=== PATIENT | female | born 1980 | race Caucasian/White ===

== ENCOUNTER → 2021-03-26 14:46 | Outpatient (CLI) | payer OTHER, SELFPAY ==
--- NOTE | ~2021-03-26 | MM_ITS ---
EXAMINATION: MM screening joanie BI w franklin HISTORY: Screening mammogram TECHNIQUE: Craniocaudal and mediolateral oblique 3-D tomosynthesis images were obtained and synthetic 2-D images were generated. Bilateral rotated lateral cc views. CAD analysis was submitted and interp reted. COMPARISON: No prior mammogram is available for comparison at this institution. BREAST PARENCHYMAL COMPOSITION: The breasts are heterogeneously dense, which may obscure small masses . FINDINGS: There is no evidence of suspicious mass, calcification, or architectural distortion to sugg est malignancy in either breast. There has been no suspicious interval change. IMPRESSION: 1. No mammographic evidence of malignancy. 2. Recommend routine screening mammography in one year. BI-RADS Category 1: Negative Reviewed, dictated and finalized at location A.
== END ==
PROVIDERS: PCP Nurse Practitioner Family; Visit Provider Obstetrics & Gynecology
DX: Z12.31 Encounter for screening mammogram for malignant neoplasm of breast (principal)
CPT/HCPCS: 77063; 77067

== ENCOUNTER 2023-06-08 13:23 | Emergency (ER) | payer BC, SELFPAY ==
--- NOTE | ~2023-06-08 | XR_ITS ---
EXAMINATION: XR chest 2V DATE: 06/08/2023 14:12 INDICATION: Midsternal chest pain TECHNIQUE: PA and lateral views of the chest are obtained. COMPARISON: 08/08/2018 FINDINGS: The lungs are free of acute opacities. No pleural effusion or pneumothorax. The cardiomedia stinal silhouette is normal. There is mild thoracic spondylosis. IMPRESSION: 1. No acute cardiopulmonary abnormality. Reviewed, dictated and finalized at location F. ROENTEROLOGY TECHNICIAN
--- NOTE | 2023-06-08 13:24 | ECG_ITS ---
Measurements Intervals [place] Rate: 88 P: 74 IA: 130 QRS: 39 QRSD: 89 T: 48 QT: 353 QTc: 427 Interpretive Statements SINUS RHYTHM INCOMPLETE RIGHT BUNDLE BRANCH BLOCK BORDERLINE ECG NO PREVIOUS ECG AVAILABLE FOR COMPARISON Electronically Signed On 06-09-2023 8:41:59 ENGINEERING PROGRAM ANALYST by Alexandre Sanchez D.O.
[2023-06-08 13:37] VITALS: BP 132/87; PULSE 83; RESP 17; TEMP 36.4; O2SAT 100
[2023-06-08 13:49] LABS: Basophils Absolute Auto 0.1 K/mm3 (0.0-0.1); Basophils Percent Auto 0.6 % (0.2-1.2); Eosinophils Percent Auto 0.5 % (0-4.4); Hematocrit 37.3 % (37.0-47.0); Hemoglobin 12.6 g/dL (12.0-15.0); Immature Granulocyte Absolute 0.03 K/mm3 (0.00-0.031); Immature Granulocyte Percent A 0.3 % (0-0.5); Lymphocytes Absolute Auto 1.01 K/mm3 (0.9-3.2); Lymphocytes Percent Auto 11.4 % (18.3-44.2); Mean Corpuscular HGB Conc 33.8 g/dl (32-36); Mean Corpuscular Hemoglobin 30.4 pg (26-34); Mean Corpuscular Volume 89.9 fl (80-100); Mean Platelet Volume 9.7 fl (7.4-10.4); Monocytes Absolute Auto 0.7 K/mm3 (0.1-0.6); Monocytes Percent Auto 8.4 % (2.6-8.5); Neutrophils Percent Auto 78.8 % (45.5-73.1); Platelet Count Result 239 k/mm3 (150-375); Red Blood Count 4.15 M/mm3 (4.2-5.4); Red Cell Distribution Width 11.9 % (11.5-14.5); White Blood Count 8.9 K/mm3 (4.5-10.0)
[2023-06-08 14:00] LABS: Alanine Aminotransferase 13 U/L (6-35); Albumin Level 4.4 g/dL (3.5-5.1); Alkaline Phosphatase 77 U/L (38-126); Anion Gap 9 mmol/L (8-16); Aspartate Amino Transferase 22 U/L (14-36); Bilirubin,Total 0.8 mg/dL (0.2-1.3); Blood Urea Nitrogen 11 mg/dL (7-17); Calcium 9.5 mg/dL (8.4-10.2); Carbon Dioxide 27 mmol/L (22-30); Chloride 101 mmol/L (98-107); Estimated CRCL calculation 116 ml/min; Estimated Glomerular Filt Rate > 60; Glucose 103 mg/dL (65-110); Lipase 111 U/L (23-300); Potassium 4.1 mmol/L (3.4-5.0); Sodium 137 mmol/L (137-145)
[2023-06-08 14:01] LABS: INR 1.1; Prothrombin Time 14.6 Seconds (11.1-14.7)
[2023-06-08 14:02] LABS: Partial Thromboplastin Time 34.5 SECONDS (22.3-36.8)
[2023-06-08 14:10] LABS: Troponin I < 0.012 ng/mL (0.000-0.034)
[2023-06-08 14:15] VITALS: BP 121/71; PULSE 77; RESP 14; O2SAT 100
--- NOTE | 2023-06-08 14:38 | ED.CHESTPAIN ---
HPI - Chest Pain General Chief Complaint: Chest Pain Stated Complaint: chest tightness Time Seen by Provider: 06/08/23 14:08 History of Present Illness HPI narrative: 43-year-old female presented to the Emergency department for evaluation of epigastric pain. Patient states symptoms started on Tuesday. Patient had been started on doxycycline for a suspected sinus infection on Tuesday. patient reports that the chest pain and epigastric pain has been worsening with eating is associated with increased belching. Patient has no cardiac history Related Data Home Medications Medication Instructions Recorded Confirmed multivitamin (Daily Multi-Vitamin 1 tablet PO DAILY 08/09/19 10/05/22 tablet) escitalopram oxalate 10 mg tablet 10 mg PO DAILY 10/05/22 10/05/22 hydroxyzine HCl 25 mg tablet 25 mg PO BID PRN Nausea And 10/05/22 10/05/22 Vomiting doxycycline hyclate 100 mg capsule mg 06/08/23 06/08/23 Allergies Allergy/AdvReac Type Severity Reaction Status Date / Time Penicillins Allergy Unknown Unknown Verified 06/08/23 13:39 amoxicillin [From Augmentin] Allergy Swelling Verified 06/08/23 13:39 clavulanic acid Allergy Swelling Verified 06/08/23 13:39 [From Augmentin] AMOXICILLIN TRIHYDRATE Allergy Unknown Unknown Uncoded 10/05/22 09:20 POTASSIUM CLAVULANATE Allergy Unknown Unknown Uncoded 10/05/22 09:20 Review of Systems Review of Systems: All systems reviewed & are unremarkable except as noted in HPI and below PMFSH Past Medical History Medical History (Updated 06/09/23 @ 00:00 by Background Daemon) Migraines Vaginal delivery x2 Family History Family History Grandparent Hypertension, Onset Age: 65 Family history of malignant neoplasm of male breast, Onset Age: 52 Family history of coronary artery disease, Onset Age: 50 Mother Hypertension Father Hypertension Social History Social History Smoking status: Never smoker Second hand tobacco smoke exposure: No Alcohol intake: current Substance use: never Substance use type: does not use Lack of Transportation: No Lack of Food: Never True Current Housing: I Have Housing Concerned About Future Housing: No Difficulty Paying Gas/Electric Bills: No Difficulty Paying for Meds: No Currently Unemployed: No Education: Associate Degree Difficulty w/ Childcare or Family Care: No Exam Narrative: APPEARANCE: Well appearing, no pain, no distress, well-nourished. HEAD: normocephalic, atraumatic. EYES: PERRLA/EOMI, conjunctivae clear. NOSE: Normal no drainage EARS:TMS clear with good light reflex. THROAT: Pharynx clear, no exudate. NECK: Supple. No adenopathy, no masses. RESPIRATORY: Airway patent, respirations nonlabored. Clear to auscultation bilaterally, no rales, rhonchi, wheezing. CARDIOVASCULAR: Regular rate and rhythm without murmurs rubs or gallops. ABDOMINAL: epigastric and sternal tenderness to palpation MUSCULOSKELETAL: Moves all extremities. Strength/ROM intact, No edema, No calf tenderness. NEURO: Alert. Cranial nerves II through XII intact. Good gait. Good coordination SKIN: Warm, dry. Normal Color Course Course Emergency Course: 43-year-old female presents emerged department for evaluation epigastric pain. Suspect esophagitis/ gastritis secondary to the doxycycline. Patient's initial EKG was negative. Patient is afebrile with no leukocytosis. Patient's CMP has no significant abnormalities, patient's initial troponin was negative. Patient's lipase was negative. Chest x-ray showed no acute cardiopulmonary abnormality. Patient is being treated with Protonix and with a GI cocktail. Patient family updated on plan of the workup and symptom control. patient does feel improved with GI cocktail. Patient had negative serial troponins. patient and family were updated of the results
[2023-06-08] MEDS: PANTOPRAZOLE SODIUM IV 40 MG VIAL IV PUSH (14:56)
[2023-06-08] MEDS: BELLADONNA ALK/PHENOB ELIX 10 ML, MAG HYDROX/ALUMINUM HYD/SIMETH 30 ML, LIDOCAINE HCL 2... PO (14:56)
[2023-06-08 15:51] VITALS: BP 112/69; PULSE 71; RESP 16; O2SAT 100
[2023-06-08 15:53] VITALS: BP 103/84; PULSE 73; RESP 15; O2SAT 100
[2023-06-08 15:54] VITALS: BP 94/78; PULSE 68; RESP 16; O2SAT 100
[2023-06-08 17:29] LABS: Troponin I < 0.012 ng/mL (0.000-0.034)
[2023-06-08 17:47] VITALS: BP 123/68; PULSE 82; RESP 20; O2SAT 100
== END 2023-06-08 17:56 | disposition home or self-care (01) ==
PROVIDERS: Emergency Medicine; Emergency Provider Emergency Medicine; PCP Nurse Practitioner Family
DX: R10.13 Epigastric pain (principal); I45.10 Unspecified right bundle-branch block
CPT/HCPCS: 36415; 71046; 80053; 83690; 84484; 85025; 85610; 85730; 93005; 96374; 99284; A9270; C9113

== ENCOUNTER 2024-02-24 12:14 | Outpatient (CLI) | payer BC, SELFPAY ==
--- NOTE | ~2024-02-24 | MM_ITS ---
EXAMINATION: MM screening joanie BI w franklin HISTORY: Screening TECHNIQUE: Craniocaudal and mediolateral oblique 3-D tomosynthesis images were obtained and synthetic 2-D images were generated. CAD analysis was submitted and interpreted. COMPARISON: 03/26/2021 BREAST PARENCHYMAL COMPOSITION: Dense: The breasts are heterogeneously dense, which may obscure small masses FINDINGS: There is no evidence of suspicious mass, calcification, or architectural distortion to sugg est malignancy in either breast. There has been no suspicious interval change. IMPRESSION: 1. No mammographic evidence of malignancy. 2. Recommend routine screening mammography in one year. BI-RADS Category 1: Negative Reviewed, dictated and finalized at location B.
== END 2024-02-24 12:15 ==
LOC: MICIMG 12:15
PROVIDERS: PCP Nurse Practitioner Family; Visit Provider Obstetrics & Gynecology
DX: Z12.31 Encounter for screening mammogram for malignant neoplasm of breast (principal)
CPT/HCPCS: 77063; 77067

== ENCOUNTER 2025-05-06 11:57 | Outpatient (CLI) | payer BC, SELFPAY ==
--- NOTE | ~2025-05-06 | MM_ITS ---
EXAMINATION: MM screening [facility] BI w franklin INDICATION: Asymptomatic, referred for screening mammogram COMPARISON: 02/24/2024 and 03/26/2021 TECHNIQUE: Digital Breast Tomosynthesis CC, MLO views of Both breasts were obtained with computer-aided detection to assist in interpretation of the study. FINDINGS: The breasts are heterogeneously dense, which may obscure small masses. There is a mass with partially obscured margins in the inferior lateral left breast at posterior third. Elsewhere, there are no mammographic features of malignancy. IMPRESSION: 1. Left breast Mass. 2. No evidence of malignancy in the Right breast. RECOMMENDATION: Left breast Diagnostic mammogram with true lateral, appropriate spot compression views and left breast ultrasound. BI-RADS Category 0: Incomplete: Needs additional imaging evaluation. Reviewed, dictated and finalized at location B. IMPRESSION: 1. Left breast Mass. 2. No evidence of malignancy in the Right breast. RECOMMENDATION: Left breast Diagnostic mammogram with true lateral, appropriate spot compressio n views and left breast ultrasound. BI-RADS Category 0: Incomplete: Needs additional imaging evaluation.
== END 2025-05-06 11:58 | disposition home or self-care (01) ==
LOC: MICIMG 12:00
PROVIDERS: Visit Provider Nurse Practitioner Family
DX: Z12.31 Encounter for screening mammogram for malignant neoplasm of breast (principal); R92.8 Other abnormal and inconclusive findings on diagnostic imaging of breast
CPT/HCPCS: 77063; 77067

== ENCOUNTER 2025-06-21 07:48 | Outpatient (CLI) | payer BC, SELFPAY ==
--- NOTE | ~2025-06-21 | MMUS_ITS ---
EXAMINATION: US breast LT limited, MM diagnostic joanie LT w franklin HISTORY: Additional imaging TECHNIQUE: Craniocaudal and mediolateral oblique 3-D tomosynthesis images were obtained and synthetic 2-D images were generated. CAD analysis was submitted and interpreted. Grayscale sonography over the area(s) of interest with color Doppler if there is a finding. COMPARISON: May 06 BREAST PARENCHYMAL COMPOSITION: Dense: The breasts are heterogeneously dense MAMMOGRAM FINDINGS: A circumscribed mass persists at approximately 4:00. There are no suspicious calcifications. No unexplained architectural distortion is seen. There are no skin or nipple abnormalities identified. There is no adenopathy seen on the images submitted. ULTRASOUND FINDINGS: Sonography through 4:00 position demonstrates an 11 mm macrolobulated cyst. This accounts for the mammographic mass. A small cyst containing echoes is also seen nearby. No solid masses are seen. IMPRESSION: No mammographic or sonographic evidence to suggest malignancy is seen. The patient may return to screening mammography as per ACR guidelines. BI-RADS 2 - Benign. Reviewed, dictated and finalized at location C. S INSPECTOR IMPRESSION: No mammographic or sonographic evidence to suggest malignancy is seen. The tenzin ent may return to screening mammography as per ACR guidelines. BI-RADS 2 - Benign.
== END 2025-06-21 07:49 | disposition home or self-care (01) ==
LOC: MICIMG 07:49
PROVIDERS: Visit Provider Nurse Practitioner Obstetrics & Gynecology
DX: R92.8 Other abnormal and inconclusive findings on diagnostic imaging of breast (principal)
CPT/HCPCS: 76642; 77061; 77065; G0279